=== PATIENT | male | born 1960 | race Caucasian/White ===

== ENCOUNTER 2016-02-25 23:44 | Inpatient (IN) | payer BC ==
[~2016-02-25] VITALS: Ht 175.3 cm; Wt 89.8 kg
--- NOTE | ~2016-02-25 | HC ---
[facility] [place] [address] CONSULTATION Name: JOELKYLE J Room #: 406-P [facility]..#: [id number] Admission: 02/26/16 Attend Phys: Ralph Mccallum Discharge: 02/26/16 Date of : 58 Report #: [id number] THIS REPORT FOR: //name// CC: Ralph Ricardo MD DATE OF SERVICE: 02/26/2016 REASON FOR CONSULTATION: Right distal ureteral calculus. HISTORY OF PRESENT ILLNESS: The patient is a 55-year-old gentleman who presented to the emergency room with the acute onset of lower abdominal pain radiating into the right flank and difficulty voiding. The patient also had pain radiating into the testicle. Subsequent assessment with CT imaging revealed the presence of 2 mm calculus in the right distal ureter with mild proximal hydronephrosis. The patient was admitted for pain management. This historically is the patient's first episode of stone disease. He denies any history of fever or chills, dysuria or hematuria in association with the acute onset of flank pain. PAST MEDICAL HISTORY: Hyperlipidemia. PAST SURGICAL HISTORY: Includes appendectomy. He has had the minor orthopedic procedures as well. MEDICATIONS: On a regular basis include simvastatin. FAMILY HISTORY: Negative for stone disease. Positive for coronary artery disease. SOCIAL HISTORY: The patient is a 1/2-1 pack cigarette smoker for many years. Alcohol use is infrequent. REVIEW OF SYSTEMS: Ten-point review of systems is otherwise negative. PHYSICAL EXAMINATION: GENERAL: The patient is currently in no acute distress, pain has resolved completely. HEENT: Normocephalic, atraumatic. NECK: Supple without lymphadenopathy. LUNGS: Clear to auscultation. CARDIOVASCULAR: Regular rate and rhythm without murmur. ABDOMEN: Soft, palpably benign. There is no CVA tenderness. [facility] [address] [place] [address] CONSULTATION Name: KYLE MALDONADO Room #: 406-P [facility].#: [id number] Admission: 02/26/16 Attend Phys: Ralph Mccallum Discharge: 02/26/16 Date of : 58 Report #: [id number] GENITOURINARY: External genitalia unremarkable. RECTAL: Deferred. EXTREMITIES: Negative for edema. IMAGING STUDIES: The patient has a 2-mm calculus at the right ureterovesical junction. The patient has no retained stones within the kidney. LABORATORY DATA: The patient's white blood count was 14, hemoglobin and hematocrit are 17 and 49. His creatinine is 1.1 with a BUN of 21. Electrolytes were normal. Admitting urinalysis, specific gravity is 1.030, pH was 6, 2+ blood, 3-10 red cells, no white cells present. IMPRESSION: Right distal ureteral calculus. PLAN AND DISCUSSION: The patient is now asymptomatic. Given distal location of the stone and small size, it will likely pass spontaneously. We would advise outpatient management which the patient feels comfortable with. He will be dismissed home with a urine strainer for stone collection. Urologic office followup in 1 week. Discharge medications have been written by hospitalist service including Flomax daily and hydrocodone as needed for pain. <ELECTRONICALLY SIGNED> By: John Yanes MD 02/27/16 [id number] John Yanes MD /nt
[~2016-02-25 23:44] MED LIST: CARISOPRODOL 3350 MG PO; DOXYCYCLINE 10100 MG PO; IBUPROFEN 600600 M1 PO; MOBIC15 MG PO; NORCO 5-325 TA1 EACH PO; OXYCODONE-ACET1 EAC2 PO; PERCOCET 5-3251 EACH PO; PERCOCET PO; PREDNISONE 20 M20 MG PO; SIMVASTATIN20 MG PO
[2016-02-25 23:46] VITALS: BP 140/89
[2016-02-26 00:14] LABS: ABSOLUTE NEUTROPHILS 9.6 thou/uL (1.4-8.2); BASOPHILS 0.9 % (0.0-2.0); EOSINOPHILS 1.5 % (0.0-3.0); LYMPHOCYTES 23.8 % (24.0-44.0); MCH 31.2 pg (26.0-34.0); MCHC 34.7 % (28.0-37.0); MCV 89.9 fL (80.0-100.0); MONOCYTES 5.2 % (1.0-8.0); PLATELET COUNT 238 thou/uL (150-400); POLYS 68.6 % (36.0-66.0); RBC 5.45 mil/uL (4.50-6.00); RDW 13.7 % (10.5-14.5)
[2016-02-26 00:22] LABS: MANUAL DIFF NO
[2016-02-26 00:24] LABS: CALCIUM 8.5 mg/dL (8.5-10.1); CREATININE 1.1 mg/dL (0.6-1.3)
[2016-02-26 00:48] LABS: URINE BILIRUBIN NEGATIVE (Negative); URINE BLOOD 2+ (Negative); URINE COLOR YELLOW; URINE GLUCOSE-RANDOM* NEGATIVE (Negative); URINE KETONES NEGATIVE (Negative); URINE NITRITE NEGATIVE (Negative); URINE PROTEIN (DIPSTICK) NEGATIVE (Negative); URINE SPECIFIC GRAVITY >= 1.030 (1.003-1.035); URINE UROBILINOGEN 0.2 E.U./dl (0.2-1.0)
[2016-02-26 01:12] LABS: HYALINE CASTS 0-3 Few /LPF (None Seen); SQUAMOUS 0-3 Few /LPF (0-3); TRANSITIONAL EPITHEL CELL 0-3 Few /LPF (None Seen)
[2016-02-26 01:13] LABS: BACTERIA None Seen /HPF (None Seen); CASTS None Seen /LPF (None Seen); URINE RBC 3-10 Few /HPF (0-2); URINE WBC 0-5 Rare /HPF (0-5)
[2016-02-26 01:14] LABS: CRYSTALS None Seen /LPF (None Seen)
[2016-02-26 02:02] VITALS: BP 110/69
[2016-02-26 02:58] VITALS: BP 113/68
[2016-02-26] MEDS ORDERED: SIMVASTATIN40 MG PO (03:08)
[2016-02-26 08:00] VITALS: BP 109/72
[2016-02-26] MEDS ORDERED: PERCOCET PO (08:03)
[2016-02-26] MEDS ORDERED: FLOMAX0.4 MG PO (08:03)
[2016-02-26 12:21] VITALS: BP 109/72
== END 2016-02-26 13:07 | disposition home or self-care (01) | DRG 694 ==
LOC: ER 23:44 → 4N 02-26 02:02 → EROBS 02-26 02:03 → 4N 02-26 02:03
PROVIDERS: Emergency Medicine
DX: N13.2 Hydronephrosis with renal and ureteral calculous obstruction (principal); R33.9 Retention of urine, unspecified; F17.210 Nicotine dependence, cigarettes, uncomplicated; E78.5 Hyperlipidemia, unspecified; Z98.890 Other specified postprocedural states; Z90.49 Acquired absence of other specified parts of digestive tract; Z82.49 Family history of ischemic heart disease and other diseases of the circulatory system; Z83.6 Family history of other diseases of the respiratory system; Z71.6 Tobacco abuse counseling
CPT/HCPCS: 10091

== ENCOUNTER → 2018-02-05 | Outpatient (CLI) | payer BC ==
[~2018-02-05] MED LIST changes: +FLOMAX0.4 MG PO; +SIMVASTATIN40 MG PO
== END ==
LOC: RAD 13:52
DX: R91.1 Solitary pulmonary nodule (principal)

== ENCOUNTER 2018-04-15 04:35 | Emergency (ER) | payer BC ==
[~2018-04-15] VITALS: Ht 175.3 cm; Wt 86.2 kg
[2018-04-15] MEDS ORDERED: FLOMAX0.4 MG PO (04:54)
[2018-04-15 05:26] LABS: URINE BILIRUBIN NEGATIVE (Negative); URINE BLOOD 3+ (Negative); URINE CLARITY CLEAR; URINE COLOR YELLOW; URINE GLUCOSE-RANDOM* NEGATIVE (Negative); URINE KETONES 1+ (Negative); URINE LEUKOCYTES-REFLEX NEGATIVE (Negative); URINE NITRITE-REFLEX NEGATIVE (Negative); URINE PROTEIN (DIPSTICK) NEGATIVE (Negative); URINE SPECIFIC GRAVITY >= 1.030 (1.005-1.035); URINE UROBILINOGEN 0.2 E.U./dl (0.2-1.0)
[2018-04-15 05:44] LABS: BASOPHILS 0.8 % (0.0-2.0); EOSINOPHILS 1.4 % (0.0-3.0); HEMATOCRIT 48.2 % (42.0-52.0); HEMOGLOBIN 16.6 gm/dL (14.0-18.0); LYMPHOCYTES 8.7 % (24.0-44.0); MCH 30.6 pg (26.0-34.0); MCHC 34.4 g/dL (28.0-37.0); MONOCYTES 4.8 % (1.0-8.0); PLATELET COUNT 284 thou/uL (150-400); POLYS 84.3 % (36.0-66.0); RBC 5.42 mil/uL (4.50-6.00); RDW 13.9 % (10.5-14.5); WBC 16.6 thou/uL (4.0-11.0)
[2018-04-15 05:46] LABS: SQUAMOUS 0-3 Few /LPF (0-3)
[2018-04-15 05:47] LABS: CASTS None Seen /LPF (None Seen); CRYSTALS None Seen /LPF (None Seen); MUCUS 4-6 Moderate strn/LPF (None Seen); URINE RBC >20 Many /HPF (0-2); URINE WBC-REFLEX 0-5 Rare /HPF (0-5)
[2018-04-15 05:55] LABS: POTASSIUM 3.7 mmol/L (3.5-5.1)
[2018-04-15 06:01] LABS: TOTAL BILIRUBIN 0.7 mg/dL (<0.1-1.0); TOTAL PROTEIN 7.7 g/dL (6.4-8.2)
[2018-04-15] MEDS ORDERED: ENDOCET 5-3251 EACH PO (07:17)
[2018-04-15 07:39] VITALS: BP 116/80
== END 2018-04-15 07:39 | disposition home or self-care (01) ==
LOC: ER 04:35
PROVIDERS: Emergency Medicine
DX: N20.1 Calculus of ureter (principal); R34 Anuria and oliguria; R33.9 Retention of urine, unspecified; F17.210 Nicotine dependence, cigarettes, uncomplicated; E78.5 Hyperlipidemia, unspecified; Z90.49 Acquired absence of other specified parts of digestive tract

== ENCOUNTER 2018-04-17 14:59 | Inpatient (IN) | payer BC ==
[2018-04-17] VITALS (14 sets, daily range): BP systolic 95–153; BP diastolic 54–117
[~2018-04-17] VITALS: Ht 177.8 cm; Wt 90.7 kg
[~2018-04-17 14:59] MED LIST changes: +ENDOCET 5-3251 EACH PO
[2018-04-17 16:12] LABS: BASOPHILS 0.6 % (0.0-2.0); EOSINOPHILS 0.1 % (0.0-3.0); HEMATOCRIT 47.1 % (42.0-52.0); HEMOGLOBIN 16.2 gm/dL (14.0-18.0); LYMPHOCYTES 7.2 % (24.0-44.0); MCH 30.4 pg (26.0-34.0); MCHC 34.3 g/dL (28.0-37.0); MCV 88.7 fL (80.0-100.0); PLATELET COUNT 273 thou/uL (150-400); POLYS 87.1 % (36.0-66.0); RBC 5.31 mil/uL (4.50-6.00); RDW 14.2 % (10.5-14.5); WBC 17.2 thou/uL (4.0-11.0)
[2018-04-17 16:25] LABS: CALCIUM 9.5 mg/dL (8.5-10.1); CREATININE 1.3 mg/dL (0.7-1.3); POTASSIUM 3.8 mmol/L (3.5-5.1)
--- NOTE | 2018-04-17 17:03 | NUR ---
AT APPROX 1658 PT'S FAMILY MEMEBER CAME TO NURSES STATION AND STATES THAT HE IS TURNING BLUE. PT HAD WEAK FEMORAL PULSE, BREATHING ASSISTED NOW WITH BAG MASK VALVE. SATS FROM 60'S TO 90'S. PT WAS PLACED ON WOOD CREW SUPERVISOR AT THIS TIME. AT APPROX 1703 PT HAS SNORING RESPIRATIONS, RT ASSISTS CONTRACT SERVICEMAN AND SUCTIONS PT. AT 1704 PT IS ASSISTED BREATHING AGAIN AT THIS TIME WITH BAG MASK. AT APPROX 1705 PT RECIEVED ANOTHER DOSE OF 0.4 NARCAN. EKG AT 1710, PT CONTINUES TO HAVE BREATHING ASSISTED WITH BAG MASK
--- NOTE | 2018-04-17 17:03 | NUR ---
HAN IN AT 1702
--- NOTE | 2018-04-17 17:12 | NUR ---
0.4 NARCAN IN AT THIS TIME 1712 RT REQUESTS ORAL AIRWAY, INSERTS AND CONTINUES TO ASSIST BREATHING WITH BAG MASK NARCAN IN AT 1518 RESPIRATORY CART READY FOR ERP TO INTUBATE
--- NOTE | 2018-04-17 17:22 | NUR ---
LABSA DRAWN FROM EXISITING LINE AT 1723 ERP PREPARING TO INTUBATE AT THIS TIME 1725 200 SUCCS 1725 20 ETOMIDATE 24 AT MOLAR LINE 1726 ERP VERALIZES OG AND CXR PLAN
--- NOTE | 2018-04-17 17:25 | NUR ---
WHILE IN CT PT REQUIRED SECOND IV SECONDARY TO PROPOFOL AND CT CONTRAST NOT COMPATIBLE PER PHARMACIST. 20 GUAGE IV TO LEFT HAND X'S 1 WITH SUCCESS AND PROPOFOL CHANGED TO NEW IV IN LEFT HAND. CT CONTRAST RAN THROUGH 18 GUAGE IV IN RIGHT AC.
--- NOTE | 2018-04-17 17:35 | NUR ---
1735 VERBAL ORDER FROM ED DOCTOR FOR PROPOFOL DRIP START 20MCQ/KG/MIN. PROPOFOL DRIP STARTED AT 1735.
[2018-04-17 17:40] LABS: BE(vivo) -7.4 mmol/L (-2 to +3); HCO3 18.4 mmol/L (22.0-26.0); PCO2 38.2 mmHg (35.0-45.0); PO2 156.3 mmHg (80.0-100.0); sO2 98.8 % (92.0-98.0)
[2018-04-17 19:37] LABS: URINE BILIRUBIN NEGATIVE (Negative); URINE BLOOD 1+ (Negative); URINE CLARITY CLEAR; URINE COLOR YELLOW; URINE GLUCOSE-RANDOM* NEGATIVE (Negative); URINE KETONES 2+ (Negative); URINE LEUKOCYTES-REFLEX NEGATIVE (Negative); URINE NITRITE-REFLEX NEGATIVE (Negative); URINE PROTEIN (DIPSTICK) NEGATIVE (Negative); URINE SPECIFIC GRAVITY 1.015 (1.005-1.035); URINE UROBILINOGEN 0.2 E.U./dl (0.2-1.0)
[2018-04-17 19:43] LABS: BACTERIA-REFLEX 1-9 Few /HPF (None Seen); SQUAMOUS None Seen /LPF (0-3); URINE RBC 3-10 Few /HPF (0-2); URINE WBC-REFLEX 0-5 Rare /HPF (0-5)
[2018-04-17 19:44] LABS: CASTS None Seen /LPF (None Seen); CRYSTALS None Seen /LPF (None Seen)
[2018-04-18] VITALS (54 sets, daily range): BP systolic 56–119; BP diastolic 36–67
[2018-04-18 05:37] LABS: BE(vivo) -0.8 mmol/L (-2 to +3); HCO3 24.3 mmol/L (22.0-26.0); PCO2 41.9 mmHg (35.0-45.0); PO2 76.2 mmHg (80.0-100.0); pH 7.382 (7.360-7.450); sO2 95.1 % (92.0-98.0)
[2018-04-18 06:08] LABS: HEMATOCRIT 42.8 % (42.0-52.0); MCH 29.4 pg (26.0-34.0); MCHC 32.6 g/dL (28.0-37.0); MCV 90.3 fL (80.0-100.0); RBC 4.74 mil/uL (4.50-6.00)
[2018-04-18 06:14] LABS: HEMOGLOBIN 13.9 gm/dL (14.0-18.0)
--- NOTE | 2018-04-18 06:16 | NUR ---
END OF SHIFT SUMMARY: Pt admitted to ICU room 247 from ED. Pt sedated on ventilator, 100% FiO2, sinus rhythm. Pt attempted to pull out ET tube when sedation lightened. Soft wrist restraints in place to prevent accidental extubation. Monitor remains sinus rhythm. Able to titrate FiO2 down to 40%, lungs remain coarse but less so than on admission. Suction small to moderate amounts of thin white sputum approximately q 4 hours. Scant bile drainage from OG. Urine output adequate, 450 cc since admit at 2100.
[2018-04-18 07:15] LABS: ALBUMIN 2.9 g/dL (3.4-5.0); CALCIUM 8.4 mg/dL (8.5-10.1); CREATININE 1.4 mg/dL (0.7-1.3); POTASSIUM 4.1 mmol/L (3.5-5.1); TOTAL PROTEIN 5.8 g/dL (6.4-8.2)
[2018-04-18 08:15] LABS: BE(vivo) -1.2 mmol/L (-2 to +3); HCO3 24.4 mmol/L (22.0-26.0); PCO2 43.7 mmHg (35.0-45.0); PO2 77.2 mmHg (80.0-100.0); pH 7.364 (7.360-7.450)
--- NOTE | 2018-04-18 10:59 | EKG ---
[place] [address] [facility] [address] ELECTROCARDIOGRAM REPORT Name: KYLE MALDONADO Room #: 247-P ADM IN M.R.#: [id number] ������������������ Admission: 04/17/18 ������������������ Attend Phys: Roger Daniels MD Discharge: ������������������ Date of : 58 Report #: [id number] ����������������������������������������������������������������� [id number] THIS REPORT FOR: //name// [facility] ED Test Date: 2018-04-17 Test Time: 17:10:08 Pat Name: KYLE MALDONADO Department: Room: [facility] Gender: M [employer] Sweeper Operator: [facility] : 1960 Requested By: Clayton Bartlett Order Number: [id number] MD: Jose Sears Measurements Intervals [place] Rate: 115 P: 73 NC: 165 QRS: 73 QRSD: 97 T: -9 QT: 321 QTc: 444 Interpretive Statements Sinus tachycardia Nonspecific ST segment abnormality No previous ECG available for comparison Electronically Signed On 04-18-2018 10:59:35 MACHINE HAMPER MAKER by Jose Sears [email or web address] ��������������������������������������������� <ELECTRONICALLY SIGNED> ���������������������������������������� By: Jose Sears MD, [facility] ��������������������������������������������� 04/18/18 1059 1710 1710 Jose Sears MD, FACC /EPI
--- NOTE | 2018-04-18 17:26 | NUR ---
ASSUMED CARE OF PT AT 0700 THIS SHIFT. PT HAS BEEN COOPERATIVE, HAS DENIED ANY PAIN THIS SHIFT. PT WAS EXTREMELY ANXIOUS THIS MORNING WHEN PROPOFOL GTT WAS TITRATED DOWN, UNABLE TO DO C-PAP TRIAL DUE TO AGITATION. PT WAS SWITCHED TO PRECEDEX GTT FOR ANXIETY MANAGEMENT. PT TOLERATED PRECEDEX GTT, PT WAS EXTUBATED @1306 THIS SHIFT. PT IS AWAKE AND ALERT, DIET HAS BEEN ADVANCED TOLERATED. PT IS CURRENTLY RESTING COMFORTABLY IN ROOM. ASSESSMENTS ARE DOCUMENTED. PT HAS HAD FAMILY VISIT THIS SHIFT, EDUCATION WAS PROVIDED. PLAN OF CARE IS TO CONTINUE TO MONITOR PT CLOSELY AT THIS TIME.
[2018-04-19] VITALS (17 sets, daily range): BP systolic 91–135; BP diastolic 41–75
--- NOTE | 2018-04-19 07:08 | NUR ---
END OF SHIFT SUMMARY: Pt progressing toward goals. Remains alert and oriented x4, slept well throughout night. Lungs remain mildly coase, with O2 sat > 92% on 2 liter canula. Monitor sinus dotty, sinus rhythm with rates 54-74. SBP 8-92 at beginning of shift. 1 L NS bolus given over 4 hours and SBP now 110-124. Urine output adequate, 900 cc for this shift. No c/o of flank pain
--- NOTE | 2018-04-19 10:44 | NUR ---
CM ASSESSMENT: CASE OPENED FOR DC PLANNING. CLINICAL INFO REVIEWED. PT ADMITTED WITH PAIN AND LEFT URETEROLITHIASIS. PT LIVES WITH SPOUSE. WORKS FT, INDEPENDENT WITH ADL, IADLS. PCP IS SUHAIL MALIN. LIKELY NO CASE MANAGEMENT NEEDS AT DC.
--- NOTE | 2018-04-19 14:20 | NUR ---
ASSUMED CARE OF PT AT 0700 THIS SHIFT. PT HAS BEEN COOPERATIVE, HAS DENIED ANY PAIN THIS SHIFT. PT WAS READY TO GET OUTOF BED THIS MORNING, STANDING UP WITHOUT DIZZINESS, GAIT STABLE. PT HAS BEEN UP TO COMMODE, NO BM YET THIS SHIFT. PT IS STILL ON 2L NC, NOT ABLE TO WEAN DOWN, DUE TO DESATING TO LOW 90s. PT STILL RECOLLECTING EVERYTHING THAT HAPPENED TO HIM, BUT IS A&O OTHERWISE. PT HAS TRANSFER ORDER OUT OF ICU, CURRENTLY RESTING COMFORTABLY IN ROOM. PT HAS HAD VISITORS THIS SIFT, EDUCATION WAS PROVIDED. PLAN OF CARE IS TO CONTINUE TO MONITOR CLOSELY AT THIS TIME.
[2018-04-20 04:09] VITALS: BP 140/78
[2018-04-20 04:33] LABS: CALCIUM 7.9 mg/dL (8.5-10.1); CREATININE 0.8 mg/dL (0.7-1.3); POTASSIUM 3.7 mmol/L (3.5-5.1)
--- NOTE | 2018-04-20 06:09 | NUR ---
ASSUMED CARE OF PT AT 1900. ASSESSMENTS PER DOCUMENTATION. VSS, NO DISTRESS NOTED. NO ACUTE EVENTS OVERNIGHT. PT VERY RESTFUL. IVF'S INFUSING WITHOUT DIFFICULTY. ENCOURAGED PT TO COUGH/DEEP BREATHS AND TO GET OOB, PT DOES STAND OT VOID. ADEQUATE AMOUNT OF UOP. PT HR REG AND KRIS AT TIMES 47-60'S WHILE ASLEEP. WEANED O2 TO 1LNC, PT DESATS INTO THE 80'S WHILE ASLEEP, PT DENIES FEELING SOA. AM LABS PENDING.
[2018-04-20 08:00] VITALS: BP 143/68
--- NOTE | 2018-04-20 08:28 | NUR ---
PT BATHED HIMSELF AT THE SINK, UP AD JUSTINA IN THE ROOM, NOW SITTING IN CHAIR. SR/SB, 1L/NC, ENCOURAGING PT TO TAKE DEEP BREATHS/COUGH WHILE SPLINTING CHEST, TOLERATING PO, VOIDING PER URINAL. AT BEDSIDE. QUESTIONS ANSWERED TO SATISFACTION.
--- NOTE | 2018-04-20 13:00 | NUR ---
PT IS HAVING PAIN, PALE, HAVING PAIN ALL OVER. DENIES FLANK PAIN. PT ALSO STATES HE IS UNABLE TO VOID AND ONLY VOIDING SMALL AMOUNTS (@100CC). NOTIFIED DR. HINTON. TORADOL IV GIVEN, BLADDER SCAN 328CC. DR. HINTON PRESENT TO SEE PT. KUB PENDING.
[2018-04-20] MEDS ORDERED: AUGMENTIN 875-1 EACH PO (15:21)
[2018-04-20] MEDS ORDERED: FLOMAX0.4 MG PO (15:21)
[2018-04-20 15:33] VITALS: BP 143/68
--- NOTE | 2018-04-20 16:18 | NUR ---
DR. HINTON NOTIFIED OF KUB RESULTS. PT PAIN IMPROVED DOWN TO 2/10 AFTER TORADOL. IV REMOVED. PT GIVEN DISCHARGE INSTRUCTIONS, SCRIPTS AND HE VERBALIZED UNDERSTANDING. PT DISCHARGED T0 HOME IN WHEELCHAIR PER PRIVATE VEHICLE.
== END 2018-04-20 16:22 | disposition home or self-care (01) | DRG 871 ==
LOC: ER 14:59 → EROBS 20:15 → ICU 20:15
PROVIDERS: Emergency Medicine; Internal Medicine Pulmonary Disease; Nurse Practitioner; Pediatrics; ADMIT Internal Medicine
PROC: 5A1935Z Respiratory Ventilation, Less than 24 Consecutive Hours (ICD-10-PCS; principal; 2018-04-17)
PROC: 0BH17EZ Insertion of Endotracheal Airway into Trachea, Via Natural or Artificial Opening (ICD-10-PCS; principal; 2018-04-17)
DX: A41.9 Sepsis, unspecified organism (principal); J69.0 Pneumonitis due to inhalation of food and vomit; J96.01 Acute respiratory failure with hypoxia; G92 Toxic encephalopathy; I46.9 Cardiac arrest, cause unspecified; N20.1 Calculus of ureter; N39.0 Urinary tract infection, site not specified; T40.601A Poisoning by unspecified narcotics, accidental (unintentional), initial encounter; E78.5 Hyperlipidemia, unspecified; J44.9 Chronic obstructive pulmonary disease, unspecified; I10 Essential (primary) hypertension; R91.1 Solitary pulmonary nodule; F17.210 Nicotine dependence, cigarettes, uncomplicated; Z87.442 Personal history of urinary calculi; Z90.49 Acquired absence of other specified parts of digestive tract; Z71.6 Tobacco abuse counseling; Z79.899 Other long term (current) drug therapy; Z82.49 Family history of ischemic heart disease and other diseases of the circulatory system; Z82.5 Family history of asthma and other chronic lower respiratory diseases; Y92.89 Other specified places as the place of occurrence of the external cause; Z28.21 Immunization not carried out because of patient refusal
CPT/HCPCS: 10078; 10203

== ENCOUNTER → 2018-05-25 | Outpatient (CLI) | payer BC ==
[~2018-05-25] MED LIST changes: +AUGMENTIN 875-1 EACH PO
== END ==
LOC: RAD 11:38
DX: M47.817 Spondylosis without myelopathy or radiculopathy, lumbosacral region (principal); M43.8X4 Other specified deforming dorsopathies, thoracic region; M85.88 Other specified disorders of bone density and structure, other site; G89.29 Other chronic pain

== ENCOUNTER → 2018-05-28 | Outpatient (CLI) | payer BC | LOC: MRI 06:55 | DX: S22.068A Other fracture of T7-T8 thoracic vertebra, initial encounter for closed fracture (principal); S22.078A Other fracture of T9-T10 vertebra, initial encounter for closed fracture; S22.088A Other fracture of T11-T12 vertebra, initial encounter for closed fracture; X58.XXXA Exposure to other specified factors, initial encounter; Y93.89 Activity, other specified; Y92.89 Other specified places as the place of occurrence of the external cause; Y99.8 Other external cause status ==